=== PATIENT | male | born 1965 | race Caucasian/White ===

== ENCOUNTER 2016-11-19 18:22 | Emergency (ER) | payer SELFPAY ==
[~2016-11-19] VITALS: Ht 162.6 cm; Wt 74.8 kg
[2016-11-19 18:35] VITALS: BP 132/78
--- NOTE | 2016-11-19 18:35 | NUR ---
Patient to bed 04 via wheelchair per nurse.
--- NOTE | 2016-11-19 18:36 | NUR ---
51M BIB FAMILY C/O SHORTNESS OF BREATH AT 0900 TODAY DURING WORK; HX: DM. DENIES N/V/D; SKIN IS PINK/WARM/DRY; AAOX4 WITH EVEN AND STEADY GAIT; LUNGS CLEAR BL; HR EVEN AND REGULAR; PT DENIES ANY FEVER, CP, SOB, OR COUGH AT THIS TIME; PATIENT STATES PAIN BOTH LEGS OF 8/10 AT THIS TIME; VSS; PATIENT POSITIONED FOR COMFORT; HOB ELEVATED; BEDRAILS UP X2; BED DOWN. ER MD MADE AWARE OF PT STATUS.
--- NOTE | 2016-11-19 18:45 | NUR ---
BLOOD SUGAR 141
--- NOTE | 2016-11-19 19:26 | NUR ---
Pt report given to AUSTIN JARRELL. Transfer of care at this time.
[2016-11-19] MEDS ORDERED: KETOROLAC 30 MG/ML VIAL IVP ONE (19:35)
[2016-11-19] MEDS ORDERED: NACL 0.9% 1,000 ML IV ONE (19:45)
[2016-11-19 19:46] LABS: BASOPHILS % (AUTO) 0.5 % (0.0-2.0); EOSINOPHILS # (AUTO) 0.1 K/uL (0-0.4); EOSINOPHILS % (AUTO) 1.5 % (0.0-4.0); HEMATOCRIT 43.3 % (36-52); HEMOGLOBIN 14.6 g/dL (12.0-18.0); LYMPHOCYTES # (AUTO) 0.5 K/uL (2.0-11.5); MEAN CORPUSCULAR HEMOGLOBIN 31 pg (27-31); MEAN CORPUSCULAR HGB CONC 34 g/dL (33-37); MEAN CORPUSCULAR VOLUME 92 fL (80-94); MONOCYTES # (AUTO) 0.4 K/uL (0.8-1.0); MONOCYTES % (AUTO) 4.7 % (1.7-9.3); NEUTROPHILS # (AUTO) 6.9 K/uL (1.8-7.7); NEUTROPHILS % (AUTO) 87.3 % (42.2-75.2); PLATELET COUNT (AUTO) 144 K/uL (140-450); RED CELL DISTRIBUTION WIDTH 12.6 % (11.6-13.7); WHITE BLOOD COUNT (AUTO) 7.9 K/uL (4.8-10.8)
[2016-11-19 20:02] LABS: ANION GAP 14.5 (8-16); CALCIUM 8.8 mg/dL (8.5-10.1); CARBON DIOXIDE 22.4 mmol/L (21-32); CREATININE 0.9 mg/dL (0.6-1.3); POTASSIUM 3.9 mmol/L (3.5-5.1)
[2016-11-19 20:04] LABS: INR 1.2 (0.8-1.2); PARTIAL THROMBOPLASTIN TIME 28.2 secs (22-35.6); PROTHROMBIN TIME 11.7 secs (10.8-13.4)
[2016-11-19 20:12] LABS: ALBUMIN 3.8 g/dL (3.4-5.0); TOTAL PROTEIN, SERUM 7.7 g/dL (6.4-8.2)
--- NOTE | 2016-11-19 20:33 | NUR ---
Dr. Linn evaluting patient at bedside.
[2016-11-19 20:55] VITALS: BP 137/68
== END 2016-11-19 20:55 | disposition home or self-care (01) ==
LOC: MED 18:22
DX: E11.9 Type 2 diabetes mellitus without complications (principal); R07.89 Other chest pain; R06.02 Shortness of breath
CPT/HCPCS: 36415; 71010; 80053; 83880; 84484; 85025; 85610; 85730; 93005; 96374; 99285; J1885; J7030; Q0092